=== PATIENT | female | born 1980 | race Caucasian/White ===

== ENCOUNTER 2016-11-12 08:14 | Emergency (ER) | payer MEDICAID ==
[2016-11-12 08:41] LABS: BASOPHILS 0.5 % (0.0-2.0); EOSINOPHILS 3.2 % (0.0-6.0); EOSINOPHILS# 0.2 X 10^3uL (0.0-0.4); HEMATOCRIT 46.4 % (36.0-48.0); HEMOGLOBIN 15.1 g/dL (12.0-16.0); LYMPHOCYTES 29.5 % (20.0-40.0); LYMPHOCYTES# 1.9 X 10^3uL (0.8-3.8); MEAN CORPUS. HGB CONCENTRATION 32.6 g/dL (32.0-36.0); MEAN CORPUSCULAR HEMOGLOBIN 28.3 pg (29.0-35.0); MEAN PLATELET VOLUME 9.5 fL (7.4-10.4); MONOCYTES# 0.4 X 10^3uL (0.2-1.0); NEUTROPHILS 60.8 % (54.0-75.0); NEUTROPHILS# 3.9 X 10^3uL (2.6-6.7); PLATELET COUNT 207 X 10^3uL (130-440); RED BLOOD COUNT 5.34 X 10^6uL (4.20-6.10); RED CELL DISTRIBUTION WIDTH 14.8 % (11.5-14.5); WHITE BLOOD COUNT 6.4 X 10^3uL (3.9-10.7)
[2016-11-12 08:44] LABS: BLOOD UREA NITROGEN 11 mg/dL (7-17); CALCIUM 9.5 mg/dL (8.4-10.2); CHLORIDE 111 mmol/L (98-107); EST GLOMERULAR FILTRATION RATE > 60 mL/min; GLUCOSE 94 mg/dL (70-100); POTASSIUM 3.8 mmol/L (3.5-5.1); SODIUM 142 mmol/L (137-145)
[2016-11-12 08:45] LABS: INR 2.6
[2016-11-12] MEDS ORDERED: LIDOCAINE HCL 1% 20 ML VIAL ONE (09:19)
--- NOTE | 2016-11-12 10:21 | CT REPORT ---
HISTORY: Chest pain, history of multiple prior pulmonary emboli, on Coumadin COMPARISON: None. TECHNIQUE: This examination was performed using automated exposure control, adjustment of mA or kV according to patient size, and/or use of iterative reconstruction technique. Axial CT imaging from the thoracic i nlet through the upper abdomen following administration of IV contrast during peak opacification of t he pulmonary arteries, multiplanar reformatted and 3-D images are evaluated. 100cc Isovue 300 contrast. FINDINGS: There is normal enhancement within the pulmonary arteries. No evidence for pulmonary embolism. The sm aller, subsegmental vessels are less well evaluated due to mild motion artifact. The pulmonary arteri es are normal in size. The thoracic aorta appears normal. The heart size is mildly enlarged. No effusions. No adenopathy. Upper abdominal structures appear nor mal. The lungs are well aerated and are clear except for minimal right basilar atelectasis. There is normal alignment to the thoracic spine. IMPRESSION: No evidence for pulmonary embolism. Mild cardiomegaly. Mild right basilar atelectasis. Final Electronic Signature: This report was electronically signed by Andrea Harvey MD on 11/12/2016 1 0:18 AM. jody / / [facility] [phone]
[2016-11-12] MEDS ORDERED: KETOROLAC TROMETHAMINE 30 MG/ML VIAL ONE (10:24)
--- NOTE | 2016-11-12 11:13 | ER NURSING DOCUMENTATION ---
Nurse's Notes [facility] Name:Phuong Engel Age:36 yrs Sex:Female :1980 Arrival Date:11/12/2016 Time:08:14 BedTrauma-B Private MD:Liang Carrillo Diagnosis:Atypical Chest Pain Presentation: 11/12 08:30 Acuity: ROSENDO 2 st 08:30 Transition of care: [place]. mt1 Triage Assessment: 10:16 General: Appears uncomfortable, well developed, well nourished, well groomed, Behavior sc1 is cooperative, pleasant. Pain: Complains of pain in chest and left lateral anterior chest. Historical: - PMHx: pulmonary embolizm; - Ebola Screening: : Patient negative for fever greater than or equal to 101.5 degrees Fahrenheit, and additional compatible Ebola Virus Disease symptoms. Patient denies exposure to infectious person. Patient denies travel to an Ebola-affected area in the 21 days before illness onset. No symptoms or risks identified at this time. . - Immunization history: Flu Vaccine < 1 year. - Social history: Smoking status: Patient states was never smoker of tobacco. Patient/guardian denies using alcohol, street drugs, IV drugs, but used to experiment with IV drugs, marijuana. Screenin:37 Infectious Disease Risk None. Abuse screen: Denies threats or abuse. Nutritional sc1 screening: No deficits noted. Assessment: 10:16 Reassessment: No changes from previously documented assessment. mt1 Vital Signs: 08:39 BP 122 / 72 (auto/); sc1 08:43 Pulse Ox 97% ; sc1 08:45 BP 118 / 77 (auto/); sc1 08:53 Pulse 75 MON; Resp 25; Pulse Ox 96% ; sc1 09:00 BP 120 / 77 (auto/); sc1 09:13 Pulse 68 MON; Resp 9; Pulse Ox 97% ; sc1 09:15 BP 112 / 70 (auto/); sc1 09:47 BP 107 / 80 (auto/); sc1 09:48 Pulse 70 MON; Resp 17; Pulse Ox 97% ; mt1 ED Course: 08:19 Patient arrived in ED. ds 08:20 Og Velez MD is Attending Physician. jm 08:20 Liang Carrillo is Private Physician. ds 08:30 Daysi Aguilar RN is Primary Nurse. st 08:[address] 08:52 Missed attempts: 20 gauge X 1 in right antecubital area. lpr 08:52 Valuables Remains with patient Patient has correct armband on for positive lpr identification. Bed in low position. Call light in reach. Side rails up X 1. court recording monitor on. Pulse ox on. NIBP on. 09:00 Primary Nurse role handed off by Daysi Aguilar RN [facility] [place] 09:00 Jeniffer Capps, CHARLY is Primary Nurse. mt1 09:36 Inserted peripheral IV: 20 gauge in left hand by Kimberly SIS. sc1 10:[address] hz 10:[address] hz 10:52 Discontinued lock intact, bleeding controlled, pressure dressing applied, No mt1 redness/swelling at site. 10:52 Discontinued lock intact, bleeding controlled, pressure dressing applied, No sc1 redness/swelling at site. Administered Medications: 10:15 Drug: Toradol 30 mg; Route: IVP; Site: left hand; [facility] 10:46 Follow up: Response: No adverse reaction; Pain is decreased [facility] [place] Outcome: 10:36 Discharge ordered by MD. ramos 11:10 Discharged to [place] [id number] 11:10 Condition: improved 11:10 Discharge instructions given to patient, Jessica RN Instructed on discharge instructions, follow up and referral plans. medication usage, Demonstrated understanding of instructions, medications. 11:12 Patient left the ED. mt1 Signatures: Daysi Aguilar RN RN st Campbell, Sandy, RN RN [facility] [place] Srclive, Cinthya, Reg Reg Og Gleason MD MD jm Roberts, Leslie, RN RN lpr Zolnowski, Heather
--- NOTE | 2016-11-12 11:13 | ER PHYSICIAN DOCUMENTATION ---
Physician Documentation [facility] Name:Phuong Engel Age:36 yrs Sex:Female :1980 Arrival Date:11/12/2016 Time:08:14 BedTrauma-B Private MD:Liang Carrillo ED, John Disposition: 11/12/16 10:36 Discharged to [place]. Impression: Atypical Chest Pain. - Condition is Good. - Discharge Instructions: CHEST PAIN Atypical - CHEST PAIN, Uncertain Cause. - Medical Reconciliation form form. - Follow up: Private Physician; When: Today; Reason: Continuance of care. - Problem is new. - Symptoms have improved. HPI: 11/12 08:23 This 36 yrs old Female presents to ER with complaints of Arm Pain - left. 08:23 This 36 yrs old Female presents to ER with complaints of Arm Pain - left. 08:23 The patient or guardian reports chest pain that is located primarily in the left jm lateral anterior chest. The pain does not radiate. There has been no movement of pain. Associated signs and symptoms: Pertinent positives: shortness of breath. The chest pain is described as sharp. Duration: The patient or guardian reports a single episode, that is still ongoing. Modifying factors: the symptoms are aggravated by nothing. Severity of pain: in the emergency department the pain is unchanged. The patient has experienced similar episodes in the past, and the symptoms today are exactly the same, to when the patient was apparently diagnosed with PE. The patient has not recently seen a physician. Pt at [facility] for oxy. Pt here for PE w/u. Pt w hx of hypercoagulability here for SOB and CP. Pt is on warfarin, but still wants a CT scan. . Historical: - PMHx: pulmonary embolizm; - Ebola Screening: : Patient negative for fever greater than or equal to 101.5 degrees Fahrenheit, and additional compatible Ebola Virus Disease symptoms. Patient denies exposure to infectious person. Patient denies travel to an Ebola-affected area in the 21 days before illness onset. No symptoms or risks identified at this time. . - Immunization history: Flu Vaccine < 1 year. - Social history: Smoking status: Patient states was never smoker of tobacco. Patient/guardian denies using alcohol, street drugs, IV drugs, but used to experiment with IV drugs, marijuana. ROS: 08:41 Constitutional: Negative for fatigue, fever. 08:41 Cardiovascular: Positive for chest pain. 08:41 Respiratory: Positive for shortness of breath. 08:41 All other systems are negative. Exam: 08:41 Constitutional: The patient appears alert, awake. 08:41 Constitutional: The patient appears obese. 08:41 Eyes: Periorbital structures: appear normal, Conjunctiva: normal. 08:41 ENT: Mouth: is normal, Voice: is normal. 08:41 Neck: Thyroid: appears normal, Trachea: is midline with no obvious abnormalities. 08:41 Cardiovascular: Rate: normal, Rhythm: regular. 08:41 Respiratory: the patient does not display signs of respiratory distress, Respirations: normal, Breath sounds: are normal. 08:41 Abdomen/GI: Bowel sounds: normal, Palpation: abdomen is soft and non-tender. 08:41 Musculoskeletal/extremity: DVT Exam: No signs of deep vein thrombosis. Calves: are non-tender, have equal circumference. 08:41 Skin: Appearance: Color: pink, no rash present. 08:41 Neuro: Mentation: is normal, Memory: is normal. 08:41 Psych: Behavior/mood is pleasant, cooperative, Affect is calm. Vital Signs: 08:39 BP 122 / 72 (auto/); sc1 08:43 Pulse Ox 97% ; sc1 08:45 BP 118 / 77 (auto/); sc1 08:53 Pulse 75 MON; Resp 25; Pulse Ox 96% ; sc1 09:00 BP 120 / 77 (auto/); sc1 09:13 Pulse 68 MON; Resp 9; Pulse Ox 97% ; sc1 09:15 BP 112 / 70 (auto/); sc1 09:47 BP 107 / 80 (auto/); sc1 09:48 Pulse 70 MON; Resp 17; Pulse Ox 97% ; sc1 MDM: 08:20 Patient medically screened. 08:42 Differential diagnosis: chest wall pain, pulmonary embolus. Data reviewed: vital signs, nurses notes, and as a result, I will discharge patient. 10:50 Counseling: I had a detailed discussion with the patient and/or guardian regarding: the historical points, exam findings, and any diagnostic results supporting the discharge/admit diagnosis, lab results, radiology results, the need for outpatient follow up, with the patient's primary care provider. Medication response: The patient's symptoms have improved, ED course: No PE found. Pt given Toradol and feels better. Do not have a great reason for her Lateral wall CP, but it is not a PE and she feels much better about that. . 11/12 08:42 Order name: CBC AUTO DIF, MDIF/RMOR IF IND; Complete Time: 08:49 EDMS 11/12 08:43 Order name: HCG, SERUM; Complete Time: 08:49 EDMS 11/12 08:45 Order name: BASIC METABOLIC PANEL; Complete Time: 08:49 EDMS 11/12 08:46 Order name: PROTIME/INR; Complete Time: 08:49 EDMS 11/12 10:21 Order name: CAT SCAN; CHEST ANGIO [id number] EDMS Dispensed Medications: 10:15 Drug: Toradol 30 mg; Route: IVP; Site: left hand; ne1 10:46 Follow up: Response: No adverse reaction; Pain is decreased sc1 Signatures: Jeniffer Capps RN RN sc1 Og Velez MD MD
== END 2016-11-12 11:13 ==
LOC: ER 08:14
DX: R07.89 Other chest pain (principal); M79.602 Pain in left arm; R06.02 Shortness of breath; E66.9 Obesity, unspecified; Z86.711 Personal history of pulmonary embolism; Z79.01 Long term (current) use of anticoagulants; F11.20 Opioid dependence, uncomplicated; Z99.89 Dependence on other enabling machines and devices; Z99.81 Dependence on supplemental oxygen; Z74.3 Need for continuous supervision
CPT/HCPCS: 71275; 80048; 84703; 85025; 85610; 96374; 99284; A0425; A0427; J1885